=== PATIENT | female | born 1980 | race Two or more races ===

== ENCOUNTER 2025-01-28 22:47 | Emergency (ER) | payer OTHER ==
[~2025-01-28] VITALS: Ht 167.6 cm; Wt 168.2 kg
[2025-01-28 22:49] VITALS: BP 126/86; PULSE 96; RESP 16; TEMP 97.9; O2SAT 100
[2025-01-28 23:01] LABS: COVID AG,FIA SOURCE NASAL SWAB
[2025-01-28 23:27] LABS: SARS-COV2 (COVID) ANTIGEN,FIA Negative (Negative)
== END 2025-01-29 01:30 | disposition left against medical advice (07) ==
LOC: EMS 23:34
DX: J45.909 Unspecified asthma, uncomplicated (principal); Z53.21 Procedure and treatment not carried out due to patient leaving prior to being seen by health care provider; Z20.822 Contact with and (suspected) exposure to COVID-19